=== PATIENT | female | born 1945 | race Hispanic/Latino ===

== ENCOUNTER 2019-06-12 13:27 | Inpatient (IN) | payer MEDICARE, OTHER ==
[~2019-06-12] VITALS: Ht 149.9 cm; Wt 105.8 kg
[2019-06-12] MEDS ORDERED: ASPIRIN 325 MG TABLET ONE (13:50)
[2019-06-12 13:52] LABS: BASOPHILS % (AUTO) 0.4 % (0.0-5.0); HEMATOCRIT 35.9 % (36-48); LYMPHOCYTES % (AUTO) 16.1 % (21.0-51.0); MEAN CORPUSCULAR HEMOGLOBIN 29.5 pg (27.0-33.0); MEAN CORPUSCULAR HGB CONC 31.8 g/dL (32.0-36.0); MEAN CORPUSCULAR VOLUME 92.8 fL (79-99); MONOCYTES % (AUTO) 6.1 % (3.0-13.0); NEUTROPHILS % (AUTO) 76.6 % (40.0-77.0); PLATELET COUNT (AUTO) 199 K/uL (130-400); RED BLOOD CELL COUNT(AUTO) 3.87 MIL/uL (4.00-5.50); RED CELL DISTRIBUTION WIDTH 13.2 % (11.0-15.5); WHITE BLOOD COUNT (AUTO) 7.1 K/uL (4.8-10.8)
[2019-06-12 14:04] LABS: CREATININE 1.5 mg/dL (0.5-1.5); POTASSIUM 4.2 mmol/L (3.5-5.1)
[2019-06-12 14:09] LABS: ALBUMIN 3.4 g/dL (3.5-5.0); BILIRUBIN,TOTAL 0.3 mg/dL (0.2-1.0); TOTAL PROTEIN, SERUM 7.9 g/dL (6.0-8.3)
[2019-06-12] MEDS: SODIUM CHLORIDE 0.9% 1000ML 1,000 ML IV SCH (15:43)
[2019-06-12] MEDS ORDERED: GLUCAGON 1MG KIT 1 MG ML IM PRN (15:45)
[2019-06-12] MEDS ORDERED: ONDANSETRON HCL 4 MG/2 ML VIAL IVP PRN (15:45)
[2019-06-12] MEDS ORDERED: ACETAMINOPHEN 325 MG TAB PO PRN ×2 (15:45)
[2019-06-12] MEDS ORDERED: DEXTROSE 50%-WATER 50 ML DISP.SYRIN IV PRN (15:45)
[2019-06-12] MEDS ORDERED: HYDRALAZINE HCL 20 MG/ML VIAL IV PRN (15:45)
[2019-06-12] MEDS ORDERED: NITROGLYCERIN 0.4 MG SL TAB SL PRN (15:45)
[2019-06-12] MEDS: INSULIN HUMULIN R 100 UNIT/ML 3ML SQ SCH (16:30)
[2019-06-12] MEDS ORDERED: INSULIN HUMULIN 70/30 100 UNIT/ML 3ML SQ ONE (16:37)
[2019-06-12] MEDS ORDERED: SODIUM CHLORIDE 0.9% 1000ML 1,000 ML IV ONE (16:38)
[2019-06-12] MEDS: INSULIN HUMULIN 70/30 100 UNIT/ML 3ML SQ SCH (17:00)
[2019-06-12 20:51] LABS: CREATINE KINASE, TOTAL 69 U/L (21-232); MYOGLOBIN 47 ng/mL (10-92); TROPONIN I < 0.04 ng/mL (0.00-0.06)
[2019-06-12] MEDS: METOPROLOL SUCCINATE 50 MG TAB.SR.24H PO SCH (21:00)
[2019-06-12] MEDS: SIMVASTATIN 10 MG TABLET PO SCH (21:00)
[2019-06-12 21:06] LABS: CHOLESTEROL 140 mg/dL (<200); HDL CHOLESTEROL 99 mg/dL (35-85); LDL DIRECT 70 mg/dL (0-99); TRIGLYCERIDES 115 mg/dL (30-200)
[2019-06-12] MEDS ORDERED: SIMVASTATIN 10 MG TABLET ONE (21:26)
[2019-06-12 23:00] VITALS: BP 164/67
[2019-06-12] MEDS ORDERED: NPH,100V11 SQ (23:28)
[2019-06-12] MEDS ORDERED: PIOG15TA66 PO (23:28)
[2019-06-12] MEDS ORDERED: OLME20TA22 PO (23:28)
[2019-06-12] MEDS ORDERED: AEC81 PO (23:28)
[2019-06-12] MEDS ORDERED: MONT10TA26 PO (23:28)
[2019-06-12] MEDS ORDERED: METO-391 PO (23:28)
[2019-06-12] MEDS ORDERED: LOVA40TA2 PO (23:28)
[2019-06-13] MEDS: INSULIN HUMULIN R 100 UNIT/ML 3ML SQ SCH ×5 (00:04→20:56)
[2019-06-13] MEDS ORDERED: DILTIAZEM HCL 5 MG/ML 10 ML VIAL IV PRN (01:30)
[2019-06-13] MEDS ORDERED: DILTIAZEM HCL 125 MG/25 ML 125 MG in SODIUM CHLORIDE 0.9% 100 ML IV SCH (01:30)
[2019-06-13 04:11] VITALS: BP 131/57
[2019-06-13 05:35] LABS: HEMATOCRIT 32.2 % (36-48); MEAN CORPUSCULAR HGB CONC 31.4 g/dL (32.0-36.0); MEAN CORPUSCULAR VOLUME 92.5 fL (79-99); PLATELET COUNT (AUTO) 159 K/uL (130-400); RED BLOOD CELL COUNT(AUTO) 3.48 MIL/uL (4.00-5.50); RED CELL DISTRIBUTION WIDTH 13.2 % (11.0-15.5); WHITE BLOOD COUNT (AUTO) 5.7 K/uL (4.8-10.8)
[2019-06-13] MEDS: SODIUM CHLORIDE 0.9% 1000ML 1,000 ML IV SCH ×2 (05:51→11:52)
[2019-06-13 06:00] LABS: CARBON DIOXIDE 27 mmol/L (21-32); CHLORIDE 108 mmol/L (101-111); CREATINE KINASE, TOTAL 29 U/L (21-232); CREATININE 1.4 mg/dL (0.5-1.5); GLOMERULAR FILTR. RATE CALC 39 mL/min (>60); GLUCOSE,RANDOM 96 mg/dL (70-105); MYOGLOBIN 49 ng/mL (10-92); POTASSIUM 3.7 mmol/L (3.5-5.1); SODIUM SERUM 143 mmol/L (136-145); TROPONIN I < 0.04 ng/mL (0.00-0.06); UREA NITROGEN, BLOOD 25 mg/dL (7-18)
[2019-06-13 08:00] VITALS: BP 158/66
[2019-06-13] MEDS ORDERED: MONTELUKAST SODIUM 10 MG TAB PO SCH (09:00)
[2019-06-13] MEDS: ENOXAPARIN SODIUM 30 MG/0.3 ML SQ SCH (09:46)
[2019-06-13] MEDS: METOPROLOL SUCCINATE 50 MG TAB.SR.24H PO SCH ×2 (09:46→20:48)
[2019-06-13] MEDS: ASPIRIN 81 MG EC TAB PO SCH (09:46)
[2019-06-13] MEDS: FAMOTIDINE/PF 20 MG/2 ML VIAL IV SCH (09:46)
[2019-06-13] MEDS: INSULIN HUMULIN 70/30 100 UNIT/ML 3ML SQ SCH ×2 (09:47→17:00)
[2019-06-13 12:00] VITALS: BP 147/67
--- NOTE | 2019-06-13 14:24 | NUR ---
D/C PLAN CM spoke to pt regarding d/c planning. Pt is [place] and lives with two daughters. States daughters can assist in care if needed. Plan to home. No needs verbalized or identified. CM to f/u. Addendum: 06/13/19 at 1426 by MARGARET DAVILA CM Amended: Links added.
[2019-06-13] MEDS ORDERED: REGADENOSON 0.4 MG/5 ML PF SYG IVP SCH (14:45)
[2019-06-13 16:00] VITALS: BP 104/55
[2019-06-13 19:35] VITALS: BP 152/66
[2019-06-13] MEDS: SIMVASTATIN 10 MG TABLET PO SCH (20:48)
[2019-06-13] MEDS: MONTELUKAST SODIUM 10 MG TAB PO SCH (20:48)
[2019-06-13] MEDS ORDERED: NON-FORMULARY MEDICATION 1 EACH (Lovastatin 40 MG) PO SCH (21:00)
[2019-06-13] MEDS ORDERED: METOPROLOL SUCCINATE 50 MG TAB.SR.24H PO SCH (21:00)
[2019-06-13 23:26] VITALS: BP 135/60
[2019-06-14 02:37] VITALS: BP 138/69
[2019-06-14 03:10] VITALS: BP 142/62
[2019-06-14 05:32] LABS: HEMATOCRIT 32.7 % (36-48); MEAN CORPUSCULAR HEMOGLOBIN 29.3 pg (27.0-33.0); MEAN CORPUSCULAR HGB CONC 31.5 g/dL (32.0-36.0); MEAN CORPUSCULAR VOLUME 93.2 fL (79-99); PLATELET COUNT (AUTO) 145 K/uL (130-400); RED BLOOD CELL COUNT(AUTO) 3.51 MIL/uL (4.00-5.50); RED CELL DISTRIBUTION WIDTH 13.2 % (11.0-15.5); WHITE BLOOD COUNT (AUTO) 5.5 K/uL (4.8-10.8)
[2019-06-14 05:45] LABS: CREATININE 1.2 mg/dL (0.5-1.5); MAGNESIUM 1.8 mg/dL (1.80-2.40); POTASSIUM 3.6 mmol/L (3.5-5.1)
[2019-06-14] MEDS: INSULIN HUMULIN R 100 UNIT/ML 3ML SQ SCH ×4 (07:30→20:11)
[2019-06-14 07:59] VITALS: BP 161/70
[2019-06-14] MEDS ORDERED: ASPIRIN 81 MG EC TAB PO SCH (09:00)
[2019-06-14] MEDS: FAMOTIDINE/PF 20 MG/2 ML VIAL IV SCH (09:37)
[2019-06-14] MEDS: METOPROLOL SUCCINATE 50 MG TAB.SR.24H PO SCH ×2 (09:37→19:57)
[2019-06-14] MEDS: LOSARTAN 100 MG TABLET PO SCH (09:37)
[2019-06-14] MEDS: ASPIRIN 81 MG EC TAB PO SCH (09:37)
[2019-06-14] MEDS: ENOXAPARIN SODIUM 30 MG/0.3 ML SQ SCH (09:38)
[2019-06-14] MEDS: INSULIN HUMULIN 70/30 100 UNIT/ML 3ML SQ SCH ×2 (09:39→16:23)
[2019-06-14 11:16] VITALS: BP 142/108
[2019-06-14] MEDS: SODIUM CHLORIDE 0.9% 1000ML 1,000 ML IV SCH (14:11)
[2019-06-14 16:00] VITALS: BP 138/81
[2019-06-14] MEDS ORDERED: POTASSIUM CHLORIDE 20MEQ/100ML 100 ML IV PRN (19:00)
[2019-06-14] MEDS ORDERED: POTASSIUM CHLORIDE 20 MEQ ERTAB PO PRN (19:00)
[2019-06-14] MEDS ORDERED: LIDOCAINE HCL-MPF 1% 2ML VIAL IV PRN (19:00)
[2019-06-14] MEDS ORDERED: POTASSIUM CHLORIDE 10% ELIXIR 20 MEQ/15 ML UDCUP PO PRN (19:00)
[2019-06-14 19:43] VITALS: BP 153/55
[2019-06-14] MEDS: MONTELUKAST SODIUM 10 MG TAB PO SCH (19:57)
[2019-06-14] MEDS: SIMVASTATIN 10 MG TABLET PO SCH (19:58)
[2019-06-14] MEDS ORDERED: MAGNESIUM 2GM PREMIX 50ML 50 ML IV SCH (20:15)
[2019-06-15] VITALS (7 sets, daily range): BP systolic 140–161; BP diastolic 52–98
[2019-06-15] MEDS: INSULIN HUMULIN R 100 UNIT/ML 3ML SQ SCH ×4 (06:01→21:00)
[2019-06-15 06:16] LABS: BASOPHILS % (AUTO) 0.4 % (0.0-5.0); EOSINOPHILS % (AUTO) 0.8 % (0.0-8.0); HEMATOCRIT 32.2 % (36-48); LYMPHOCYTES % (AUTO) 21.7 % (21.0-51.0); MEAN CORPUSCULAR HEMOGLOBIN 29.1 pg (27.0-33.0); MEAN CORPUSCULAR HGB CONC 31.1 g/dL (32.0-36.0); MEAN CORPUSCULAR VOLUME 93.6 fL (79-99); MONOCYTES % (AUTO) 8.2 % (3.0-13.0); NEUTROPHILS % (AUTO) 68.1 % (40.0-77.0); PLATELET COUNT (AUTO) 138 K/uL (130-400); RED BLOOD CELL COUNT(AUTO) 3.44 MIL/uL (4.00-5.50); WHITE BLOOD COUNT (AUTO) 4.9 K/uL (4.8-10.8)
[2019-06-15 06:50] LABS: ALBUMIN 2.9 g/dL (3.5-5.0); BILIRUBIN,TOTAL 0.4 mg/dL (0.2-1.0); CREATININE 1.2 mg/dL (0.5-1.5); MAGNESIUM 1.9 mg/dL (1.80-2.40); POTASSIUM 3.9 mmol/L (3.5-5.1); TOTAL PROTEIN, SERUM 6.8 g/dL (6.0-8.3)
[2019-06-15] MEDS: ASPIRIN 81 MG EC TAB PO SCH (09:31)
[2019-06-15] MEDS: FAMOTIDINE/PF 20 MG/2 ML VIAL IV SCH (09:31)
[2019-06-15] MEDS: METOPROLOL SUCCINATE 50 MG TAB.SR.24H PO SCH ×2 (09:31→20:45)
[2019-06-15] MEDS: ENOXAPARIN SODIUM 30 MG/0.3 ML SQ SCH (09:32)
[2019-06-15] MEDS: LOSARTAN 100 MG TABLET PO SCH (09:32)
[2019-06-15] MEDS: INSULIN HUMULIN 70/30 100 UNIT/ML 3ML SQ SCH ×2 (09:34→16:55)
[2019-06-15] MEDS ORDERED: SODIUM CHLORIDE 0.9% 500ML 500 ML IV SCH (11:44)
[2019-06-15] MEDS: SODIUM CHLORIDE 0.9% 1000ML 1,000 ML IV SCH (20:43)
[2019-06-15] MEDS: MONTELUKAST SODIUM 10 MG TAB PO SCH (20:45)
[2019-06-15] MEDS: SIMVASTATIN 10 MG TABLET PO SCH (20:45)
[2019-06-16] VITALS (12 sets, daily range): BP systolic 136–167; BP diastolic 52–72
[2019-06-16 06:31] LABS: HEMATOCRIT 33.3 % (36-48); MEAN CORPUSCULAR HEMOGLOBIN 29.1 pg (27.0-33.0); MEAN CORPUSCULAR HGB CONC 31.5 g/dL (32.0-36.0); MEAN CORPUSCULAR VOLUME 92.2 fL (79-99); PLATELET COUNT (AUTO) 145 K/uL (130-400); RED BLOOD CELL COUNT(AUTO) 3.61 MIL/uL (4.00-5.50)
[2019-06-16 06:47] LABS: CREATININE 1.3 mg/dL (0.5-1.5)
[2019-06-16 06:50] LABS: INR 1.02 (0.85-1.15); PARTIAL THROMBOPLASTIN TIME 26.7 SEC (26.3-35.5)
[2019-06-16] MEDS: INSULIN HUMULIN R 100 UNIT/ML 3ML SQ SCH ×4 (07:30→21:31)
[2019-06-16] MEDS: INSULIN HUMULIN 70/30 100 UNIT/ML 3ML SQ SCH ×2 (08:00→16:46)
[2019-06-16] MEDS: FAMOTIDINE/PF 20 MG/2 ML VIAL IV SCH (08:28)
[2019-06-16] MEDS: ASPIRIN 81 MG EC TAB PO SCH ×2 (08:28→10:30)
[2019-06-16] MEDS: METOPROLOL SUCCINATE 50 MG TAB.SR.24H PO SCH ×3 (08:29→21:36)
[2019-06-16] MEDS: LOSARTAN 100 MG TABLET PO SCH (08:29)
[2019-06-16] MEDS: ENOXAPARIN SODIUM 30 MG/0.3 ML SQ SCH (08:29)
--- NOTE | 2019-06-16 08:30 | NUR ---
procedure pending to go down to lab engineer for procedure. consent signed that medical doctor discussed with her yesterday. patient did not take this am medications or insulins due to NPO. no blood thinners and no injections given
[2019-06-16] MEDS ORDERED: IOHEXOL 350 MG/ML 100ML INFUS..BTL IV ONE (10:15)
[2019-06-16] MEDS ORDERED: IOHEXOL-350 50ML VIAL IV ONE (10:15)
[2019-06-16] MEDS ORDERED: MIDAZOLAM HCL 1 MG/ML 2ML VIAL ONE (10:15)
[2019-06-16] MEDS ORDERED: HEPARIN SODIUM 1000UNIT/ML 10ML VIAL ONE (10:15)
[2019-06-16] MEDS ORDERED: BIVALIRUDIN 250 MG/VIAL IV ONE (10:15)
[2019-06-16] MEDS ORDERED: LIDOCAINE HCL 2% 20ML ONE (10:16)
[2019-06-16] MEDS ORDERED: NITROGLYCERIN 2 MG/VIAL VIAL IV ONE (10:23)
[2019-06-16] MEDS ORDERED: LABETALOL HCL 5 MG/ML 20ML VIAL IV ONE (11:11)
[2019-06-16] MEDS ORDERED: ASPIRIN 325MG EC TAB 325 MG TABLET.DR PO ONE (11:34)
[2019-06-16] MEDS ORDERED: PRASUGREL HCL 10 MG TABLET ONE ×2 (11:35→11:37)
[2019-06-16] MEDS ORDERED: SODIUM CHLORIDE 0.9% 1000ML 1,000 ML IV SCH (12:28)
--- NOTE | 2019-06-16 12:30 | NUR ---
post op returned from procedure. bedrest x 6 hours. pt has dressing to right groin area, dry and intact. no signs of active bleed and/or hematoma. pulses are palpable to bilateral lower extremities, marked. pt denies any pain to area, denies any shortness of breath.
--- NOTE | 2019-06-16 16:13 | NUR ---
[id number] patient's grandson signed IM Letter, I faxed IM Letter to [id number] and placed in chart under consent tab
[2019-06-16] MEDS: MONTELUKAST SODIUM 10 MG TAB PO SCH (21:36)
[2019-06-16] MEDS: SIMVASTATIN 10 MG TABLET PO SCH (21:36)
[2019-06-17 03:00] VITALS: BP 141/61
[2019-06-17 05:26] LABS: HEMATOCRIT 31.3 % (36-48); MEAN CORPUSCULAR HEMOGLOBIN 29.3 pg (27.0-33.0); MEAN CORPUSCULAR HGB CONC 31.3 g/dL (32.0-36.0); MEAN CORPUSCULAR VOLUME 93.4 fL (79-99); PLATELET COUNT (AUTO) 135 K/uL (130-400); RED BLOOD CELL COUNT(AUTO) 3.35 MIL/uL (4.00-5.50); RED CELL DISTRIBUTION WIDTH 13.2 % (11.0-15.5); WHITE BLOOD COUNT (AUTO) 5.5 K/uL (4.8-10.8)
[2019-06-17 05:36] LABS: CREATININE 1.3 mg/dL (0.5-1.5)
[2019-06-17] MEDS: INSULIN HUMULIN R 100 UNIT/ML 3ML SQ SCH ×2 (06:02→11:30)
[2019-06-17] MEDS ORDERED: PRAS10TA6 PO (08:06)
[2019-06-17] MEDS: METOPROLOL SUCCINATE 50 MG TAB.SR.24H PO SCH (08:27)
[2019-06-17] MEDS: FAMOTIDINE/PF 20 MG/2 ML VIAL IV SCH (08:27)
[2019-06-17] MEDS: ASPIRIN 81 MG EC TAB PO SCH (08:27)
[2019-06-17] MEDS: LOSARTAN 100 MG TABLET PO SCH (08:27)
[2019-06-17] MEDS: INSULIN HUMULIN 70/30 100 UNIT/ML 3ML SQ SCH (08:30)
[2019-06-17 08:48] VITALS: BP 147/65
[2019-06-17] MEDS ORDERED: PRASUGREL HCL 10 MG TABLET PO SCH (09:00)
[2019-06-17 10:56] VITALS: BP 146/63
[2019-06-17 15:39] VITALS: BP 158/84
== END 2019-06-17 18:10 | disposition home or self-care (01) | DRG 246 ==
LOC: EDH 13:27 → OBSVTOIN 15:43 → EDHIP 15:43 → 3DH 21:51
PROVIDERS: ADMIT Internal Medicine; ATTEND Internal Medicine
PROC: 027135Z Dilation of Coronary Artery, Two Arteries with Two Drug-eluting Intraluminal Devices, Percutaneous Approach (ICD-10-PCS; principal; 2019-06-16)
PROC: 4A023N7 Measurement of Cardiac Sampling and Pressure, Left Heart, Percutaneous Approach (ICD-10-PCS; 2019-06-16)
PROC: B2111ZZ Fluoroscopy of Multiple Coronary Arteries using Low Osmolar Contrast (ICD-10-PCS; 2019-06-16)
PROC: B2151ZZ Fluoroscopy of Left Heart using Low Osmolar Contrast (ICD-10-PCS; 2019-06-16)
DX: I25.110 Atherosclerotic heart disease of native coronary artery with unstable angina pectoris (principal); I50.33 Acute on chronic diastolic (congestive) heart failure; Z68.42 Body mass index [BMI] 45.0-49.9, adult; E66.01 Morbid (severe) obesity due to excess calories; E11.9 Type 2 diabetes mellitus without complications; E78.5 Hyperlipidemia, unspecified; E78.00 Pure hypercholesterolemia, unspecified; I11.0 Hypertensive heart disease with heart failure; I48.0 Paroxysmal atrial fibrillation; D64.9 Anemia, unspecified; Z79.02 Long term (current) use of antithrombotics/antiplatelets; Z79.4 Long term (current) use of insulin; Z82.49 Family history of ischemic heart disease and other diseases of the circulatory system; Z88.8 Allergy status to other drugs, medicaments and biological substances; Z79.82 Long term (current) use of aspirin; Z79.899 Other long term (current) drug therapy
CPT/HCPCS: 36415; 71045; 78452; 80048; 80053; 80061; 82550; 82948; 83735; 83874; 84484; 85025; 85027; 85610; 85730; 93005; 93017; 93458; 96374; 99156; 99157; A9500; C1760; C1769; C1887; C1894; C9600; G0378; J0583; J1644; J1650; J1815; J2250; J2785; J3475; J3490; J7030; Q9967